=== PATIENT | male | born 1995 | race Caucasian/White ===

== ENCOUNTER 2017-10-31 13:42 | Emergency (ER) | payer BC ==
[~2017-10-31] VITALS: Ht 182.9 cm; Wt 91.2 kg
== END 2017-10-31 15:10 | disposition home or self-care (01) ==
LOC: ER 13:42
DX: S61.412A Laceration without foreign body of left hand, initial encounter (principal); W22.8XXA Striking against or struck by other objects, initial encounter; F17.220 Nicotine dependence, chewing tobacco, uncomplicated
CPT/HCPCS: 12001; 90471; 90714; 99283